=== PATIENT | female | born 1990 | race Caucasian/White ===

== ENCOUNTER 2017-06-14 16:55 | Observation (INO) | payer MEDICAID ==
[~2017-06-14] VITALS: Ht 157.5 cm; Wt 106.6 kg
[2017-06-14 18:12] LABS: CLARITY URINE CLOUDY (CLEAR); COLOR URINE DARK YELLOW (YELLOW); GLUCOSE URINE NEGATIVE (NEGATIVE); KETONES URINE 1+ (NEGATIVE); LEUKOCYTE ESTERASE URINE 3+ (NEGATIVE); NITRITE URINE NEGATIVE (NEGATIVE); OCCULT BLOOD URINE NEGATIVE (NEGATIVE); PROTEIN URINE TRACE (NEGATIVE); SPECIFIC GRAVITY URINE 1.018 (1.005-1.030)
[2017-06-14] MEDS ORDERED: LACTATED RINGERS 1,000 ML IV SCH (19:15)
[2017-06-14] MEDS ORDERED: CEFAZOLIN 2,000 MG in DEXT 5% WATER 100 ML IV NR (19:30)
== END 2017-06-14 22:20 | disposition home or self-care (01) ==
LOC: ER 17:02 → L&D 17:04
PROVIDERS: ADMIT Obstetrics & Gynecology; ATTEND Obstetrics & Gynecology
DX: O26.893 Other specified pregnancy related conditions, third trimester (principal); R10.9 Unspecified abdominal pain; Z3A.39 39 weeks gestation of pregnancy
CPT/HCPCS: 81001; 96361; 96365; 99281; G0378; J0690; J7120; J7060